=== PATIENT | female | born 1950 | race Caucasian/White ===

== ENCOUNTER → 2016-06-01 | Outpatient (CLI) | payer OTHER | LOC: FIMAGING 07:17 | PROVIDERS: ATTEND Internal Medicine | DX: R93.2 Abnormal findings on diagnostic imaging of liver and biliary tract (principal); K74.69 Other cirrhosis of liver; Q63.0 Accessory kidney ==

== ENCOUNTER 2016-06-25 05:41 | Day surgery (SDC) | payer OTHER ==
[2016-06-25] MEDS ORDERED: LR 1,000 ML IV ONE (06:15)
[2016-06-25] MEDS ORDERED: BUPIVACAINE 0.5% 30 ML SDV ONE (06:50)
[2016-06-25] MEDS ORDERED: SCOPOLAMINE HYDROBROMIDE 1.5 MG PATCH TD ONE ×2 (07:02→07:15)
[2016-06-25] MEDS ORDERED: MIDAZOLAM 2 MG/2 ML VIAL ONE (07:03)
[2016-06-25] MEDS ORDERED: fentaNYL 100 MCG/2 ML INJ ONE (07:13)
[2016-06-25] MEDS ORDERED: PROPOFOL 200 MG/20 ML VIAL ONE (07:13)
[2016-06-25] MEDS ORDERED: ROCURONIUM 50 MG/5 ML VIAL ONE (07:15)
[2016-06-25] MEDS ORDERED: LIDOCAINE 2% 5 ML SDV ONE (07:15)
[2016-06-25] MEDS ORDERED: CLINDAMYCIN 600 MG/DEXTROSE/50 ML BAG IV ONE (07:17)
[2016-06-25] MEDS ORDERED: PHENYLEPHRINE HCL 100 MCG/ML SYR ONE (08:02)
[2016-06-25] MEDS ORDERED: DEXAMETHASONE 4 MG/ML VIAL ONE (08:02)
[2016-06-25] MEDS ORDERED: ONDANSETRON 4 MG/2 ML VIAL ONE (08:02)
[2016-06-25] MEDS ORDERED: SUGAMMADEX SODIUM 200 MG/2 ML VIAL IVP ONE (08:03)
--- NOTE | 2016-06-25 09:18 | GOP ---
[f rep st] OPERATIVE REPORT DATE OF OPERATION: 06/25/2016 SURGEON: Letty Otto MD HEALTH INFORMATION MANAGEMENT DIRECTOR: Kaila Vasquez, KRISTINA ANESTHESIA: Anthony Sargent MD/General. PREOPERATIVE DIAGNOSIS: Hepatitis C and gallbladder polyp. POSTOPERATIVE DIAGNOSIS: Hepatitis C and gallbladder polyp. PROCEDURE PERFORMED: Laparoscopic cholecystectomy. FINDINGS: Gallbladder not inflamed. Nodular cirrhotic liver. SPECIMENS: Gallbladder. ESTIMATED BLOOD LOSS: 10 cc. INDICATIONS: The patient is a 65-year-old woman with known hepatitis C who has been followed regula rly. Her MELD score is now 10. She has a new 1.2 cm gallbladder polyp. DESCRIPTION OF PROCEDURE: The patient was brought into the operating room, placed supine on the tab le, and general anesthesia was administered. Her abdomen was prepped and draped in the usual steril e fashion. I infiltrated all sites with 0.5% Marcaine prior to making incisions. I made an incisio n at her umbilicus. I elevated it and I inserted the Veress needle, it passed the hang drop test. Her abdomen insufflated easily to a pressure of 15 mmHg. Under direct vision I placed a 10 mm subxi phoid trocar and 2 alligator graspers along the right costal margin. I lifted the gallbladder cepha lad and laterally to expose the triangle of Calot. I skeletonized the cystic artery and the cystic duct so that they were the only 2 structures directly entering the gallbladder. The common bile tenzin t was visualized and protected. I singly clipped the cystic artery and cystic duct toward the gallb ladder and doubly clipped them distally. I transected it with scissors. I removed the gallbladder from the gallbladder fossa with electrocautery. Hemostasis was achieved on the liver bed. The gall bladder was placed in an EndoCatch bag and removed via the 10 mm trocar. The ports were removed und er direct vision. The abdomen allowed to desufflate. The fascia at the 10 mm trocar site was close d with 0 Vicryl. Skin closed with 4-0 Monocryl. Dermabond applied. She was awakened in the operat ing room, extubated, transferred to PACU in stable condition. /[id number]/MODL
[2016-06-25] MEDS ORDERED: oxyCODONE IR 5 MG TAB ONE (10:57)
[2016-06-25] MEDS ORDERED: CLINDAMYCIN 600 MG/DEXTROSE 50 ML IV SCH (14:00)
== END 2016-06-25 11:25 | disposition home or self-care (01) ==
LOC: FSGY 05:41
PROVIDERS: ATTEND Surgery
PROC: 0FB44ZZ Excision of Gallbladder, Percutaneous Endoscopic Approach (ICD-10-PCS; principal; 2016-06-25 07:15)
DX: D13.5 Benign neoplasm of extrahepatic bile ducts (principal); K81.1 Chronic cholecystitis; K73.9 Chronic hepatitis, unspecified; K74.60 Unspecified cirrhosis of liver; I10 Essential (primary) hypertension; Z87.891 Personal history of nicotine dependence
CPT/HCPCS: J1100; J2250; J2370; J2405; J2704; J3010

== ENCOUNTER → 2016-12-15 | Outpatient (CLI) | payer OTHER, MEDICARE | LOC: FIMAGING 07:52 | PROVIDERS: ATTEND Internal Medicine | DX: K74.69 Other cirrhosis of liver (principal) ==

== ENCOUNTER → 2017-02-15 | Outpatient (CLI) | payer OTHER, MEDICARE | LOC: FIMAGING 08:41 | PROVIDERS: ATTEND Surgery | DX: Z12.31 Encounter for screening mammogram for malignant neoplasm of breast (principal) ==

== ENCOUNTER → 2017-06-06 | Outpatient (CLI) | payer OTHER, MEDICARE | LOC: FIMAGING 07:14 | PROVIDERS: ATTEND Internal Medicine | DX: K74.69 Other cirrhosis of liver (principal); Z90.49 Acquired absence of other specified parts of digestive tract ==

== ENCOUNTER → 2017-12-22 | Outpatient (CLI) | payer OTHER, MEDICARE | LOC: BMCIMAGING 07:12 | PROVIDERS: ATTEND Internal Medicine | DX: B18.2 Chronic viral hepatitis C (principal); K74.69 Other cirrhosis of liver; Z90.49 Acquired absence of other specified parts of digestive tract ==

== ENCOUNTER → 2018-03-17 | Outpatient (CLI) | payer OTHER, MEDICARE | LOC: FIMAGING 09:09 | PROVIDERS: ATTEND Surgery | DX: Z12.31 Encounter for screening mammogram for malignant neoplasm of breast (principal) ==

== ENCOUNTER → 2018-06-14 | Outpatient (CLI) | payer OTHER, MEDICARE | LOC: BMCIMAGING 07:54 | PROVIDERS: ATTEND Internal Medicine | DX: K74.69 Other cirrhosis of liver (principal) ==

== ENCOUNTER → 2018-07-02 | Outpatient (CLI) | payer OTHER, MEDICARE | LOC: BMCIMAGING 10:23 ==